=== PATIENT | female | born 1935 | race Caucasian/White ===

== ENCOUNTER → 2017-10-17 | Outpatient (CLI) | payer MEDICARE ==
[~2017-10-17] MED LIST: ALLOPURINOL300 M1 PO; ASPIRIN81 MG PO; CLOPIDOGREL75 M2 PO; DEMADEX20 M1 PO; DIAZEPAM5 MG PO; FENTANYL 225 MCG/EAC TD; GABAPENTIN300 MG PO; HYDROCODONE-APA1 TA2 PO; HYDROXYZINE HCL25 M1 PO; IRBESARTAN150 M2 PO; KAPIDEX60 MG PO; LEVOTHYROXIN0.025 M3 PO; LEXAPRO 10 MG T10 MG PO; LIPITOR10 MG PO; METFORMIN 500M500 M1 PO; MIRALAX17 GM/PACK PO; MUCINEX600 M1 PO; MYRBETRIQ25 MG PO; PREMARIN 0.3MG0.3 MG PO; PROVENTIL0.09 MG/A1 IH; SINGULAIR10 MG PO; VERAPAMIL SR 2240 MG PO; VITAMIN B COMPL1 TA1 PO; ZANTAC 150150 MG PO; ZYRTEC10 M3 PO
--- NOTE | 2017-10-25 14:28 | RADIOLOGY REPORT PS360 ---
DIG MAMM-DX UNI-RT W/CAD, US BREAST-RT COMPLETE W/AXILLA COMPARISON: Outside study from 07/09/2010 INDICATION: Palpable abnormality in the right lateral periareolar region ORDERING PHYSICIAN: Jovi Bustamante MD PATIENT AGE: 81 years TECHNIQUE: Standard images performed along with right breast ultrasound FINDINGS: The report is delayed waiting on outside film for comparison. There is average fibroglandular tissue with some asymmetric density in the retroareolar region. This however is unchanged from the older exams. No malignant appearing mass or malignant appearing microcalcification. Benign-appearing calcifications are present on the right Right breast ultrasound: No suspicious nodule evident. No cyst or solid lesions apparent. Nonspecific nodes are present in the axilla IMPRESSION: No evidence of malignancy. No suspicious nodule evident BI-RADS CATEGORY: 2_Benign RECOMMENDED FOLLOWUP: As clinically warranted. A negative mammogram and negative ultrasound does not exclude the possibility of malignancy. If there is in the a palpable nodule than, it should be managed on a clinical basis. Also recommend screening left mammogram as is possible if the patient has not had a recent screening mammogram in the past year (A letter has been sent to the patient regarding results of the study.)
== END ==
LOC: RAD 13:20
DX: N64.9 Disorder of breast, unspecified (principal)
CPT/HCPCS: G0206-RT

== ENCOUNTER → 2017-11-02 | Outpatient (CLI) | payer MEDICARE ==
--- NOTE | 2017-11-02 17:16 | RADIOLOGY REPORT PS360 ---
CHEST(2 VIEWS-NOT PORTABLE) HISTORY: Hypertension HTN ORDERING PHYSICIAN: Moise Gamble MD PATIENT AGE: 81 years COMPARISON: 04/07/2017 FINDINGS: The cardiomediastinal silhouette and pulmonary vascularity are within normal limits. The lungs are clear without infiltrates, suspicious nodules, or pleural effusions. There are degenerative changes in the thoracic spine. There are bilateral shoulder prosthesis.. IMPRESSION: No change with no acute finding
== END ==
LOC: RAD 15:47
DX: M19.019 Primary osteoarthritis, unspecified shoulder (principal)